=== PATIENT | female | born 1975 | race Caucasian/White ===

== ENCOUNTER 2019-12-26 20:48 | Emergency (ER) | payer SELFPAY ==
[~2019-12-26] VITALS: Ht 162.6 cm; Wt 87.5 kg
[2019-12-26 21:04] VITALS: Ht 162.6 cm; Wt 87.5 kg
[2019-12-26 22:47] VITALS: BP 140/89
== END 2019-12-26 22:50 | disposition home or self-care (01) ==
LOC: ED 20:48
DX: B34.9 Viral infection, unspecified (principal)